=== PATIENT | female | born 1955 | race Caucasian/White ===

== ENCOUNTER 2016-11-19 05:39 | Inpatient (IN) | payer OTHER ==
[2016-10-29 09:34] VITALS: BMI 38.0
--- NOTE | 2016-10-29 10:19 | PAT Medication Instructions ---
Service Date Oct 29, 2016. Current Home Medication List Aspirin (Aspirin Ec), 2 TAB PO QAM Atorvastatin (Lipitor), 20 MG PO QPM Cholecalciferol (Vitamin D-3), 1 TAB PO QAM Esomeprazole Magnesium (Nexium), 40 MG PO QAM Hydrochlorothiazide (Hydrochlorothiazide), 12.5 MG PO QPM Lorazepam (Ativan), 0.5 MG PO DAILY PRN for Anxiety Metoprolol Tartrate (Lopressor) (Lopressor), 25 MG PO BID Nitroglycerin (Nitrostat), 0.4 MG UT PRN Quetiapine Fumarate (Seroquel), 50 MG PO QPM Tramadol (Ultram), 50 MG PO Q8H PRN for Pain Vortioxetine HBr (Brintellix), 1 TAB PO QAM Medication Instructions For Your Scheduled Surgery - Check with surgeon/trash collector for instructions: Aspirin (Aspirin Ec), 81mg 2 TAB PO QAM - Hold the following medications the morning of surgery: Cholecalciferol (Vitamin D-3), 1 TAB PO QAM - Take the following medications the morning of surgery with a sip of water: Nitroglycerin (Nitrostat), 0.4 MG UT PRN Metoprolol Tartrate (Lopressor) (Lopressor), 25 MG PO BID Lorazepam (Ativan), 0.5 MG PO DAILY PRN for Anxiety Esomeprazole Magnesium (Nexium), 40 MG PO QAM Tramadol (Ultram), 50 MG PO Q8H PRN for Pain (okay to take up to 4 hours prior to surgery if needed) Vortioxetine HBr (Brintellix), 1 TAB PO QAM - Take the following medications as scheduled the night before surgery: Quetiapine Fumarate (Seroquel), 50 MG PO QPM Nitroglycerin (Nitrostat), 0.4 MG UT PRN Metoprolol Tartrate (Lopressor) (Lopressor), 25 MG PO BID Lorazepam (Ativan), 0.5 MG PO DAILY PRN for Anxiety Hydrochlorothiazide (Hydrochlorothiazide), 12.5 MG PO QPM Atorvastatin (Lipitor), 20 MG PO QPM Tramadol (Ultram), 50 MG PO Q8H PRN for Pain If you have any questions please call us at [phone] (Chiara Alberto PA-C) or [phone] or [phone]
[2016-10-29 10:46] LABS: BASO % 0.1 %; BASO ABS # 0.01 K/uL (0-0.2); COMPLETE YES; EOS % 2.3 %; HEMATOCRIT 38.3 % (37-47); IG% 0.2 %; LYMPH % 18.3 %; LYMPH ABS # 1.53 K/uL (1.2-3.4); MEAN CELL VOLUME 89.5 fL (80-100); MEAN CORPUSCULAR HEMOGLOBIN 31.5 pg (25-34); MEAN CORPUSCULAR HGB CONC 35.2 g/dl (32-36); MEAN PLATELET VOLUME 11.3 fL (7.4-10.4); MONO % 5.9 %; NEUT % 73.2 %; PLATELET COUNT 202 K/uL (130-400); RED BLOOD COUNT 4.28 M/uL (4.2-5.4); WHITE BLOOD COUNT 8.35 K/uL (4.8-10.8)
[2016-10-29 10:48] LABS: URINE APPEARANCE CLEAR (CLEAR); URINE BILIRUBIN NEG (NEG); URINE COLOR YELLOW; URINE EPITHELIAL CELL AUTO >30 /lpf (0-5); URINE NITRITE NEG (NEG); URINE PH 5.5 (4.5-7.5); URINE SPECIFIC GRAVITY 1.014 (1.000-1.030); UROBILINOGEN NEG (NEG)
[2016-10-29 10:50] LABS: MANUAL MICROSCOPIC REQUIRED? NO; REVIEW REQ? NO
[2016-10-29 11:18] LABS: BUN/CREATININE RATIO 19.6 (10-20); CALCIUM 9.3 mg/dl (8.5-10.1); CREATININE 0.75 mg/dl (0.60-1.20); POTASSIUM 3.7 mmol/L (3.5-5.1)
--- NOTE | 2016-11-18 08:56 | HISTORY & PHYSICAL EXAMINATION ---
DATE OF ADMISSION: 11/19/2016 HISTORY OF PRESENT ILLNESS: The patient presents to our office with complaint of back pain radiating down both legs, right worse than left over the past 2-3 years. She has trialed physical therapy as well as an injection in [place] with about 5-6 weeks of relief. She has also had an injection with Dr. Florez in August 2016 with about 4-5 weeks of relief. She reports bending forward or standing reproduces her back pain and the longer she is on her feet this also intensifies her pain. She is having a difficult time working as her job requires a lot of bending and lifting. Denies christopher weakness or numbness, paresthesias in her leg. Denies bowel or bladder dysfunction. PAST MEDICAL HISTORY: Significant for angina, GERD, coronary artery disease, depression, gallbladder disease, irregular heartbeat, hiatal hernia, hypertension, high cholesterol, shortness of breath, sleep apnea, spinal stenosis, motion sickness and obesity. PAST SURGICAL HISTORY: Significant for CABG x3, cholecystectomy, tubal ligation, lump excised from her right breast cyst removed from her right finger. ALLERGIES: INCLUDE SULFA. CURRENT MEDICATIONS: Include Ativan 0.5 mg daily, metoprolol 50 mg half a tablet twice a day, tramadol 50 mg twice a day, vitamin D 2000 units daily, atorvastatin 20 mg a day, Seroquel 100 mg a day, Trintellix 20 mg a day, hydrochlorothiazide 25 mg half a tablet daily, Nexium 40 mg daily, baby aspirin 2 a day, nitroglycerin 0.4 mg p.r.n. SOCIAL HISTORY: She is . She works at [employer]. Alcohol is 2 glasses a week, tobacco is none. FAMILY HISTORY: Significant for cardiovascular disease, cancer, diabetes, hypertension, high cholesterol and thyroid disease. REVIEW OF SYSTEMS: Significant for fatigue, weakness, weight loss, blurred vision, vertigo, anxiety, depression, dizziness, coughing bruising. PHYSICAL EXAMINATION: VITAL SIGNS: 5 foot 4, 212 pounds. HEAD, EYES, EARS, NOSE, AND THROAT: Speech appropriate. CARDIOPULMONARY: No gross abnormalities. ABDOMEN: Soft, nontender. GENITOURINARY: Deferred. NEUROLOGIC: Cranial nerves II-XII grossly intact. MUSCULOSKELETAL: She moves slowly around the room. No focal atrophy of her legs. Neurovascularly intact bilateral lower extremities. Strength is intact bilateral lower extremities. ASSESSMENT: Severe spinal stenosis of the lumbar spine as well as grade 1 spondylolisthesis of L4-L5. PLAN: At this point in time, she has tried and failed conservative therapy and may consider surgical intervention. Surgery would require lumbar decompression L4-5 and L3-L4. Risks, benefits, pros, cons, and alternatives were outlined in detail. She would like to proceed with above-mentioned surgical planning in the form of fusion L3-4, L4-5.
[~2016-11-19] VITALS: Ht 162.6 cm; Wt 100.4 kg
[2016-11-19] VITALS (10 sets, daily range): BP systolic 101–149; BP diastolic 67–89; PULSE 70–102; TEMP 36.4–37; O2SAT 92–98; Ht 162.6 cm; Wt 100.4 kg
[~2016-11-19 05:39] MED LIST: ASPI81TA28 PO; ATOR-22 PO; CHOL200027 PO; HYDR25TA5 PO; LORA-741 PO; METO50TA16 PO; NTRGSL/4 UT; NXM/40 PO; QUET1TAB32 PO; TRAM-10 PO; VORT20TA PO
[2016-11-19] MEDS ORDERED: CEFAZOLIN 2000 MG/60 ML D5W IV SCH (06:00)
[2016-11-19] MEDS ORDERED: LACTATED RINGER'S 1000ML 1,000 ML IV SCH (06:00)
[2016-11-19] MEDS ORDERED: MIDAZOLAM HCL 1 MG/ML 2ML VIAL ONE (06:35)
[2016-11-19] MEDS ORDERED: FENTANYL CITRATE INJ 50 MCG/1 ML 2 ML VIAL ONE ×3 (06:35→08:22)
[2016-11-19] MEDS ORDERED: BUPIVACAINE/EPINEPHRINE 0.5% MPF 1:200,000 30 ML VIAL ONE (06:57)
[2016-11-19] MEDS ORDERED: BACITRACIN 50000 UNIT VIAL ONE (06:57)
[2016-11-19] MEDS ORDERED: SODIUM CHLORIDE 0.9% PF 50 ML VIAL ONE (06:57)
--- NOTE | 2016-11-19 07:26 | History & Physical Bridge Note ---
H&P Re-Evaluation Bridge Note: I have examined the patient, reviewed the History & Physical and in the interval since the performance of the History & Physical I have noted the following changes of clinical significance: No changes noted
[2016-11-19] MEDS ORDERED: NALOXONE HCL 0.4 MG/1 ML VIAL/CARP IV PRN ×4 (08:15→10:00)
[2016-11-19] MEDS ORDERED: HYDROmorphone INJ 1 MG/ML SYR IV PRN (08:15)
[2016-11-19] MEDS ORDERED: EpHEDrine SULFATE INJ 50 MG/ML AMP IV PRN (08:15)
[2016-11-19] MEDS ORDERED: PHENYLEPHRINE 100MCG/ML 5ML SYR IV PRN (08:15)
[2016-11-19] MEDS ORDERED: ATROPINE SULFATE 0.1 MG/ML 5ML SYR IV PRN (08:15)
[2016-11-19] MEDS ORDERED: MoRPHine SULFATE 10 MG/ML CARP/VIAL IV PRN (08:15)
[2016-11-19] MEDS ORDERED: ONDANSETRON INJ 2 MG/ML 2 ML VIAL IV PRN ×2 (08:15→10:00)
[2016-11-19] MEDS ORDERED: FLUMAZENIL 0.1 MG/1 ML 10 ML VIAL IV PRN (08:15)
[2016-11-19] MEDS ORDERED: MEPERIDINE HCL 25 MG/ML CARP IV PRN (08:15)
[2016-11-19] MEDS ORDERED: LABETALOL HCL IV 5 MG/ML 20ML IV PRN (08:15)
[2016-11-19] MEDS ORDERED: HYDROmorphone INJ 2 MG/ML SYR/VIAL ONE (08:22)
[2016-11-19] MEDS ORDERED: DEXAMETHASONE SOD INJ 4 MG/ML VIAL ONE (08:41)
[2016-11-19] MEDS ORDERED: GLYCOPYRROLATE INJ 0.2 MG/ML VIAL ONE (08:41)
[2016-11-19] MEDS ORDERED: NEOSTIGMINE METHYLSULFATE 1 MG/ML 10ML VIAL ONE (08:41)
[2016-11-19] MEDS ORDERED: EpHEDrine SULFATE 50MG/5ML SYR ONE (08:41)
[2016-11-19] MEDS ORDERED: ROCURONIUM BROMIDE 10 MG/ML 5 ML VIAL ONE (08:41)
[2016-11-19] MEDS ORDERED: PHENYLEPHRINE 100MCG/ML 5ML SYR ONE (08:41)
[2016-11-19] MEDS ORDERED: LIDOCAINE HCL 2% 2 ML VIAL (20MG/ML) ONE (08:41)
[2016-11-19] MEDS ORDERED: ONDANSETRON INJ 2 MG/ML 2 ML VIAL ONE (08:41)
[2016-11-19] MEDS ORDERED: PROPOFOL IV EMULSION 10 MG/ML 20 ML VIAL IV ONE (08:41)
[2016-11-19] MEDS ORDERED: FLOSEAL HEMOSTATIC MATRIX 10ML TOP ONE (09:40)
[2016-11-19] MEDS ORDERED: SODIUM CHLORIDE 0.9% 1000ML 1,000 ML IV SCH ×2 (09:49)
--- NOTE | 2016-11-19 09:49 | [facility] Post Operative Brief Note ---
Immediate Operative Summary Operative Date Nov 19, 2016. Pre-Operative Diagnosis Severe spinal stenosis of the lumbar spine as well as grade 1 spondylolisthesis of L4-L5. Post-Operative Diagnosis Severe spinal stenosis of the lumbar spine as well as grade 1 spondylolisthesis of L4-L5. Procedure(s) Performed L3-L4, L4-L5 Lumbar Decompression, posterolateral fusion with instrumentation, Interbody Fusion with Placement of Interbody Cage at L4-5, Bone Morphogenetic Protein Surgeon Dr. Maximiliano Altamirano Manager Information Surgeon(s) Chantal Marcano PA-C Estimated Blood Loss 650ml Findings stenosis/spondy Specimens None per surgeon
--- NOTE | 2016-11-19 09:50 | DIAGNOSTIC IMAGING REPORT ---
INTRAOPERATIVE FLUOROSCOPIC IMAGES OF THE LUMBAR SPINE CLINICAL HISTORY: L3-5 DECOMPRESSION/FUSION/INTERBODY COMPARISON STUDY: No previous studies for comparison. Fluoroscopy time: 14 seconds. FINDINGS: 2 fluoroscopic images demonstrate an L4-L5 discectomy with interbody spacer placement. There are bilateral pedicle screws at the L3, L4 and L5 levels. There is slight anterolisthesis of L4 and L5. IMPRESSION: Findings consistent with an L4-L5 discectomy and L3-L5 bilateral pedicle screw fusion. Electronically signed by: Mir Iniguez M.D. 11/19/2016 9:48 AM Dictated Date/Time: 11/19/2016 9:48 AM
[2016-11-19] MEDS ORDERED: LORAZEPAM INJ 0.5 MG in SYRINGE 0 ML IV PRN (10:00)
[2016-11-19] MEDS ORDERED: NITROGLYCERIN 0.4 MG SL PER TAB CHARGE UT PRN (10:00)
[2016-11-19] MEDS ORDERED: ACETAMINOPHEN 500 MG TAB PO PRN (10:00)
[2016-11-19] MEDS ORDERED: SOD PHOSPHATE/SOD BIPHOSPHATE ENEMA 132 ML BTL PR PRN (10:00)
[2016-11-19] MEDS ORDERED: FAMOTIDINE 20 MG TAB PO PRN (10:00)
[2016-11-19] MEDS ORDERED: MAGNESIUM HYDROXIDE SUSP 30 ML UDC PO PRN (10:00)
[2016-11-19] MEDS ORDERED: ACETAMINOPHEN IV 100 ML IV PRN (10:00)
[2016-11-19] MEDS ORDERED: METOCLOPRAMIDE HCL INJ 5 MG/ML 2 ML VIAL IV PRN (10:00)
[2016-11-19] MEDS ORDERED: DO NOT ADMINISTER FLU VACCINE PRN ×3 (10:00)
[2016-11-19] MEDS ORDERED: PROMETHAZINE HCL INJ 12.5 MG in SODIUM CHLORIDE 0.9% 50ML 50 ML IV PRN (10:00)
[2016-11-19] MEDS ORDERED: TRAMADOL HCL 50 MG TAB PO PRN (10:00)
[2016-11-19] MEDS ORDERED: DO NOT ADMINISTER PNEUMOCOCCAL VACCINE PRN ×2 (10:00)
[2016-11-19] MEDS ORDERED: BISACODYL 10 MG SUPP PR PRN (10:00)
[2016-11-19] MEDS ORDERED: ALUMINUM/MAGNESIUM SUSP 30 ML UDC PO PRN (10:00)
[2016-11-19] MEDS ORDERED: hydrOXYzine HCL 25 MG TAB PO PRN (10:00)
[2016-11-19] MEDS ORDERED: HYDROmorphone HCL 0.5MG/ML 50 ML CASSETTE IV PRN ×2 (10:00)
[2016-11-19] MEDS ORDERED: LORAZEPAM 0.5 MG TAB PO PRN (10:00)
[2016-11-19] MEDS ORDERED: HYDROmorphone HCL 0.5MG/ML 50 ML CASSETTE ONE (10:08)
[2016-11-19] MEDS ORDERED: ESMOLOL HCL 10 MG/ML 10 ML VIAL ONE (10:11)
--- NOTE | 2016-11-19 10:37 | Anesthesiology Progress Note ---
Anesthesia Post Op Note Date & Time Nov 19, 2016 at 10:37 Vital Signs Pain Intensity: 0 Vital Signs Past 12 Hours Date Time Temp Pulse Resp B/P Pulse Ox O2 Delivery O2 Flow Rate FiO2 11/19/16 10:30 97 14 136/82 97 Nasal Cannula 3 11/19/16 10:20 97 14 151/79 97 Nasal Cannula 3 11/19/16 10:10 36.6 92 14 154/84 98 Mask 10 11/19/16 06:12 37 70 20 135/84 95 Room Air Notes Mental Status: alert / awake / arousable, participated in evaluation Pt Amnestic to Procedure: Yes Nausea / Vomiting: adequately controlled Pain: adequately controlled Airway Patency, RR, SpO2: stable & adequate BP & HR: stable & adequate Hydration State: stable & adequate Anesthetic Complications: no major complications apparent The patient did well. She is awake and stable.
--- NOTE | 2016-11-19 10:48 | OPERATIVE REPORT ---
DATE OF OPERATION: 11/19/2016 PREOPERATIVE DIAGNOSES: Spinal stenosis, spondylolisthesis. POSTOPERATIVE DIAGNOSIS: Same. PROCEDURE PERFORMED: 1. Lumbar decompression and medial facetectomy and foraminotomy L2-3, L3-4, L4-5. 2. Posterior spinal fusion L3-L4, L4-L5. 3. Placement of posterior segmental instrumentation using Orthros rods and screws, L3-L4, L4-L5. 4. Interbody fusion L4-L5. 5. Placement of PEEK cage 14 x 26 mm at L4-L5. 6. Placement of locally harvested morselized autograft posterior lateral gutters. 7. Placement of Infuse collagen sponge combined with Mastergraft in posterior lateral gutters and DBM in the interbody space. SURGEON: Dr. Maximiliano Altamirano. BUSINESS REPORTING DEVELOPER: GASPER Kohler. ANESTHESIA: General. DISPOSITION: The patient awakened and taken to PACU in stable condition. HISTORY OF PATIENT'S PROBLEMS: This is a 61-year-old female that presents with above-mentioned diagnosis. After failing an extensive course of nonoperative care, elected to undergo the above-mentioned procedure. Risks, benefits, pros, cons, and alternatives were outlined in detail preoperatively. PROCEDURE: The patient was met with preoperatively, case discussed and all questions were addressed. At that point the patient was taken back to the operative suite and after undergoing successful general intubation by the Department of Anesthesia was placed in prone position on the Mason table atop Broderick frame. All bony prominences were well padded and the eyes were inspected to ensure there was no external pressure placed upon them. At this point, lumbar spine was prepped and draped in a normal sterile fashion. Sharp dissection with the assistance of Bovie cautery was performed down to and exposing the lamina and transverse processes of 3, 4 and 5 bilaterally. From a caudal to cephalad fashion, complete laminectomy of 4, 3, partial laminectomy of L2 was performed addressing severe lateral recess stenosis. After this was complete, pedicle screws then placed in 3, 4, 5 bilaterally with the assistance of fluoroscopy and appropriate size mira provisionally placed. Through a transforaminal approach on the left a complete discectomy of L4-5 was performed, endplates curetted to subcortical bleeding bone and a 14 x 26 mm PEEK cage filled with DBM tapped into position. Rods were then compressed, locked into final position bilaterally and transverse processes of 3, 4, 5 burred to subcortical bleeding bone. Infuse collagen sponge combined with Mastergraft and locally harvested morselized autograft was placed in the posterior lateral gutters. A 7 flat KALYANI drain was inserted. Incision was closed with 1-0 Vicryl in the fascia, 2-0 Vicryl subcutaneously, 4-0 Monocryl for final skin closure. Steri-Strips and sterile dressing placed. The patient was awakened and taken to PACU in stable condition. Due to the complex nature of the procedure, the entire surgery was performed with the operational assistance of GASPER Kohler. The tiler's assistant, under direct supervision, was involved in the actual performance of all aspects of the surgical procedure including hemostasis, tissue retraction and incision, instrument management, patient positioning, and wound closure. I attest to the content of the Intraoperative Record and any orders documented therein. Any exceptio ns are noted below.
[2016-11-19] MEDS: SODIUM CHLORIDE 0.9% 1000ML 1,000 ML IV SCH ×3 (12:17→23:12)
[2016-11-19] MEDS: DEXAMETHASONE INJ 6 MG in SYRINGE 0 ML IV SCH ×2 (13:58→21:23)
[2016-11-19] MEDS: CEFAZOLIN IV 2,000 MG in DEXTROSE 5% 50ML 50 ML IV SCH ×2 (15:37→23:12)
[2016-11-19] MEDS: DOCUSATE SODIUM/SENNA 50/8.6MG TAB PO SCH (21:19)
[2016-11-19] MEDS: METOPROLOL TARTRATE 25 MG TAB PO SCH (21:20)
[2016-11-19] MEDS: HYDROCHLOROTHIAZIDE 25 MG TAB PO SCH (21:20)
[2016-11-19] MEDS: ATORVASTATIN 20 MG TAB PO SCH (21:20)
[2016-11-19] MEDS: QUETIAPINE FUMARATE 25 MG TAB PO SCH (21:21)
[2016-11-20] VITALS (8 sets, daily range): BP systolic 126–166; BP diastolic 76–86; PULSE 74–99; TEMP 36.5–37.3; O2SAT 90–98
[2016-11-20] MEDS: DEXAMETHASONE INJ 6 MG in SYRINGE 0 ML IV SCH (05:58)
[2016-11-20] MEDS ORDERED: DC PCA ONE (06:00)
[2016-11-20] MEDS ORDERED: NURSING VERBAL MED ORDER ONE (06:00)
[2016-11-20] MEDS ORDERED: HYDROmorphone INJ 1 MG/ML SYR IV PRN (06:00)
[2016-11-20] MEDS ORDERED: HYDROmorphone INJ 0.5 MG/0.5 ML SYR IV PRN (06:00)
[2016-11-20 06:17] LABS: BASO % 0.1 %; BASO ABS # 0.01 K/uL (0-0.2); HEMATOCRIT 24.7 % (37-47); IG% 0.3 %; LYMPH % 6.8 %; LYMPH ABS # 0.88 K/uL (1.2-3.4); MEAN CELL VOLUME 87.9 fL (80-100); MEAN CORPUSCULAR HEMOGLOBIN 30.6 pg (25-34); MEAN CORPUSCULAR HGB CONC 34.8 g/dl (32-36); MEAN PLATELET VOLUME 10.5 fL (7.4-10.4); MONO % 4.8 %; PLATELET COUNT 178 K/uL (130-400); RED BLOOD COUNT 2.81 M/uL (4.2-5.4); WHITE BLOOD COUNT 12.89 K/uL (4.8-10.8)
[2016-11-20 06:42] LABS: COMPLETE YES; DOHLE BODIES 1+; GIANT PLATELETS 1+; HYPOCHROMIA PRESENT; TOXIC GRANULATION 1+
[2016-11-20 06:45] LABS: BUN/CREATININE RATIO 17.6 (10-20); CALCIUM 8.8 mg/dl (8.5-10.1); CREATININE 0.67 mg/dl (0.60-1.20); POTASSIUM 4.1 mmol/L (3.5-5.1)
--- NOTE | 2016-11-20 07:19 | Clinical Documentation Query ---
PATRICIO Rose : CLINICAL DOCUMENTATION QUERY Patient is a 61 year old female who on 11/19 underwent lumbar decompression and posterior spinal fusion. EBL for the procedure was 650 ml's with subsequently documented losses to date totaling an additional 175 ml's. Preoperative hemoglobin and hematocrit were 13.5 g/dl and 38.3%. POD #1, values are 8.6 g/dl and 24.7%. I/O is noted to be positive for approximately 2,500 ml's at this time. She is being monitored with serial hematology and I/O including drain outputs. Please clarify as clinically appropriate. Thank you. In your clinical opinion is this patient being managed for: ( ) Acute blood loss and hemodilutional anemia ( ) Other explanation of clinical findings (Please Explain) ( ) Unable to determine (Please Define) ( ) Need to Discuss ( ) Not Agree The medical record reflects the following clinical findings, treatment, and risk factors. Clinical Indicators:As above Treatment:is being monitored with serial hematology and I/O including drain outputs Risk Factors: Acute perioperative blood losses, IVF administration. Please clarify and document your clinical opinion in the progress notes and discharge summary. Terms such as "probable", "suspected", "likely", "questionable", "possible", or "still to be ruled out" are acceptable. IF IN AGREEMENT, YOU MUST DOCUMENT ABOVE DIAGNOSTIC STATEMENT IN DAILY PROGRESS NOTES AND DISCHARGE SUMMARY. This document is not part of the patient's record. Thank You, Arturo Saldana, RN [phone]
--- NOTE | 2016-11-20 07:46 | Anesthesiology Progress Note ---
Anesthesia Post Op Note Date & Time Nov 20, 2016 at 07:46 Vital Signs Vital Signs Past 12 Hours Date Time Temp Pulse Resp B/P Pulse Ox O2 Delivery O2 Flow Rate FiO2 11/20/16 03:12 36.9 93 16 126/76 92 Room Air 11/19/16 23:09 37.0 100 18 130/82 92 CPAP 11/19/16 21:18 96 149/89 Notes Mental Status: alert / awake / arousable, participated in evaluation Pt Amnestic to Procedure: Yes Nausea / Vomiting: adequately controlled Pain: adequately controlled Airway Patency, RR, SpO2: stable & adequate BP & HR: stable & adequate Hydration State: stable & adequate Anesthetic Complications: no major complications apparent
[2016-11-20] MEDS: METOPROLOL TARTRATE 25 MG TAB PO SCH ×2 (08:38→20:44)
[2016-11-20] MEDS: ASPIRIN 81 MG ECTAB PO SCH (08:39)
[2016-11-20] MEDS: PANTOprazole SOD 40 MG TAB PO SCH (08:39)
[2016-11-20] MEDS ORDERED: RXC5 PO (13:16)
--- NOTE | 2016-11-20 13:16 | Discharge Instructions ---
Discharge Instructions Admission Reason for Admission: Lumbar Spinal Stenosis Discharge Discharge Diagnosis / Problem: stenosis Discharge Goals Goal(s): Improve function Activity Recommendations Activity Limitations: per Instructions/Follow-up section . Instructions / Follow-Up Instructions / Follow-Up ACTIVITY RECOMMENDATIONS: SELF CARE INSTRUCTIONS AFTER THORACIC/LUMBAR FUSIONS 1. You may walk to your tolerance. It is good exercise for your legs and back. Expect some back and intermittent leg aches and pains. 2. You may perform "counter-top" level activities (make a sandwich, radha with a project, etc.). 3. No bending or lifting of more than 10 pounds or back twisting of any nature (roll like a log when turning in bed). 4. You may ride in a car for 20-30 minutes at a time. No driving until after your first visit with your doctor. 5. Frequent changes of position and restricting sitting to 30 minutes at a time will help limit the amount of back spasms and stiffness you may experience. 6. You may discontinue the use of ambulatory aids (cane, crutches, etc.) once your strength and confidence allow. 7. You may band bias machine operator the shower and let water strike your incision when you arrive home at least once daily. Do not take a tub bath, sit in a hot tub or go into a swimming pool until after your first recheck in the office. SPECIAL CARE INSTRUCTIONS: VERY IMPORTANT TO READ AND REVIEW A. Your surgical incision has been closed with a cosmetic suture under the skin that will dissolve in about 6 weeks. In 14 days, you can use a pair of clean scissors and cut the suture that is left outside of the skin at the ends of your incision. 1. The small skin tapes can be removed 7 days after surgery if they have not fallen off by that point. 2. You may keep the wound open to air as much as possible to promote healing after post-op day number 5 unless told otherwise by your doctor. 3. If you think the wound looks like it is becoming infected (redness or worsening drainage) and/or you are experiencing fever, chill or worsening back pain and muscle spasms, contact the office so that we may evaluate you as soon as possible. B. Complications are uncommon, but please contact us if you have any signs or symptoms of: 1. wound infection (fever higher than 102.5 degrees F, redness, separation of wound, drainage, or increasing pain from the incision) 2. blood clots in legs (pain, swelling, redness and warmth in legs) 3. urinary tract infection (fever higher than 102.5 degrees F, burning upon urination or increased frequency of urination) 4. nerve problems (inability to walk on your toes or heels, numbness, loss of bowel or bladder control) 5. any other symptoms that concern you C. Please call the office at if you have any concerns or questions about your operation or recovery. D. No smoking! Smoking drastically decreases the chance of a solid fusion. E. Do not take any anti-inflammatory medications (Indocin, Advil, Motrin, Aspirin, Naprosyn, etc.) as these may inhibit the chance of a solid fusion. Tylenol is okay to take for pain. MANAGING PAIN AFTER SPINAL SURGERY 1. Narcotic medication is intended for short-term use and will be provided for surgical pain. Surgical pain usually lasts for a period of 4-6 weeks. Narcotic medication includes Percocet, Vicodin, Darvocet, Tylenol #3 or Lortab. 2. Longer-term pain is more appropriately treated with non-narcotic medication such as Tylenol ES. 3. Muscle spasm is not appropriately treated with narcotics. Muscle relaxers such as Soma, Flexeril or Skelaxin can be used along with Tylenol ES. 4. Remember that we all live with some "aches and pains". This is not unusual or uncommon after an injury or as we get older. a. Back pain is expected and may include muscle spasms for 4 to 6 weeks after surgery. The pain should gradually improve. If the pain worsens for no apparent reason, please contact the office. b. Intermittent leg pain may also be experienced and should not be concerned about unless it worsens for no apparent reason. If so, please contact the office. 5. We will provide appropriate medication within the normal guidelines of their prescribed use. We will also be very cautious and aware of potential abuse and extended duration of patients' medication needs. a. Pain medications are for your comfort and to assist with sleep and rest so that the tissue can heal. They are not provided in order to return to normal activity and should not be used through the day. To do so or worsening pain at night can result from ongoing tissue damage and development of tolerance to the prescribed medicine. 6. Please allow 2-3 days to process refills. Prescriptions will not be mailed but must be picked up at the office. FOLLOW UP VISIT: Keep your scheduled follow-up appointment. Any questions, please call the office at . Current Hospital Diet Patient's current hospital diet: Regular Diet Discharge Diet Recommended Diet: Regular Diet Procedures Procedures Performed: L3-L4, L4-L5 Lumbar Decompression, posterolateral fusion with instrumentation, Interbody Fusion with Placement of Interbody Cage at L4-5, Bone Morphogenetic Protein Pending Studies Studies pending at discharge: no Medical Emergencies . Who to Call and When: Medical Emergencies: If at any time you feel your situation is an emergency, please call 911 immediately. . Non-Emergent Contact Non-Emergency issues call your: Primary Care Provider . "Provider Documentation" section prepared by Maximiliano Altamirano. VTE Core Measure Inpt VTE Proph given/why not?: Stanford Mckay, SCD's
[2016-11-20] MEDS: OXYCODONE HCL IR 5 MG TAB (IMMEDIATE RELEASE) PO PRN ×2 (14:12→22:16)
--- NOTE | 2016-11-20 15:34 | PROGRESS NOTE ---
DATE: 11/20/2016 SUBJECTIVE: Postop day 1, back pain controlled. Leg pain improved. Vital signs stable. T-max 37.0 KALYANI drained 100 mL. Hematocrit 24.7. OBJECTIVE: On exam she is ambulating in the perez, demonstrates good strength to testing. Appears very comfortable. ASSESSMENT: Status post lumbar decompression and fusion. PLAN: At this time will continue with physical therapy, advance her bowel regimen, anticipate home this weekend.
[2016-11-20] MEDS: QUETIAPINE FUMARATE 25 MG TAB PO SCH (20:44)
[2016-11-20] MEDS: ATORVASTATIN 20 MG TAB PO SCH (20:44)
[2016-11-20] MEDS: DOCUSATE SODIUM/SENNA 50/8.6MG TAB PO SCH (20:44)
[2016-11-20] MEDS: HYDROCHLOROTHIAZIDE 25 MG TAB PO SCH (20:44)
[2016-11-21] MEDS: POLYETHYLENE (MIRALAX) 17 GM PACK PO SCH ×3 (05:45→18:07)
[2016-11-21] MEDS: OXYCODONE HCL IR 5 MG TAB (IMMEDIATE RELEASE) PO PRN ×4 (05:49→23:47)
[2016-11-21 06:19] VITALS: BP 132/83; PULSE 98; TEMP 36.9; O2SAT 96
[2016-11-21] MEDS: ASPIRIN 81 MG ECTAB PO SCH (07:50)
[2016-11-21] MEDS: PANTOprazole SOD 40 MG TAB PO SCH (07:51)
[2016-11-21 07:52] VITALS: BP 124/60; PULSE 85; TEMP 36.9; O2SAT 97
[2016-11-21] MEDS: METOPROLOL TARTRATE 25 MG TAB PO SCH ×2 (07:55→20:30)
[2016-11-21 08:57] VITALS: O2SAT 97
--- NOTE | 2016-11-21 14:33 | PROGRESS NOTE ---
DATE: 11/21/2016 SUBJECTIVE: Postop day #2. Back pain controlled. ____. T-max 36.9. KALYANI drained 50 mL today. Hematocrit stable at 24.7. On exam, she is quite comfortable ambulating halls. ASSESSMENT: Status post multilevel lumbar decompression and fusion. PLAN: At this time, will anticipate maintaining the KALYANI drain another 24 hours and discharge home tomorrow with home health.
[2016-11-21 15:21] VITALS: BP 138/82; PULSE 100; TEMP 37.1; O2SAT 96
[2016-11-21] MEDS: QUETIAPINE FUMARATE 25 MG TAB PO SCH (20:30)
[2016-11-21] MEDS: ATORVASTATIN 20 MG TAB PO SCH (20:30)
[2016-11-21] MEDS: DOCUSATE SODIUM/SENNA 50/8.6MG TAB PO SCH (20:30)
[2016-11-21] MEDS: HYDROCHLOROTHIAZIDE 25 MG TAB PO SCH (20:30)
[2016-11-21 20:32] VITALS: BP 144/79; PULSE 98
[2016-11-21 23:07] VITALS: BP 139/77; PULSE 89; TEMP 37.2; O2SAT 91
[2016-11-22] MEDS ORDERED: NURSING VERBAL MED ORDER ONE
[2016-11-22 07:42] VITALS: BP 148/85; PULSE 89; TEMP 37.4; O2SAT 95
[2016-11-22] MEDS: METOPROLOL TARTRATE 25 MG TAB PO SCH (08:32)
[2016-11-22] MEDS: PANTOprazole SOD 40 MG TAB PO SCH (08:32)
[2016-11-22] MEDS: ASPIRIN 81 MG ECTAB PO SCH (08:32)
[2016-11-22] MEDS: OXYCODONE HCL IR 5 MG TAB (IMMEDIATE RELEASE) PO PRN ×2 (08:35→13:27)
--- NOTE | 2016-11-22 10:39 | DISCHARGE SUMMARY ---
DATE OF DISCHARGE: 11/22/2016. PRINCIPAL DIAGNOSIS: Spinal stenosis. HOSPITAL COURSE FOLLOWS: On 11/19/2016 patient underwent lumbar decompression and fusion, tolerated this well and taken to the orthopedic floor postoperatively. Postop day #1, she was up and ambulatory, progressed to postop day #2. KALYANI drain decreasing appropriately. Bowels were working well. Subsequently on postoperative day #3 discharged home. Discharge orders and instructions can be found on the chart for further review.
[2016-11-22 11:08] VITALS: BP 148/85; PULSE 89; TEMP 37.4; O2SAT 95
== END 2016-11-22 14:20 | disposition home health service (06) | DRG 460 ==
LOC: ENRESERVTM → ENRESERVDT → C.ACU 05:39 → C.3E 07:30
PROVIDERS: ADMIT Orthopaedic Surgery Orthopaedic Surgery of the Spine; ATTEND Orthopaedic Surgery Orthopaedic Surgery of the Spine
PROC: 0SG1071 Fusion of 2 or more Lumbar Vertebral Joints with Autologous Tissue Substitute, Posterior Approach, Posterior Column, Open Approach (ICD-10-PCS; principal; 2016-11-19 07:45)
PROC: 0SG10A1 (ICD-10-PCS; principal; 2016-11-19 07:45)
PROC: 0SG10J1 Fusion of 2 or more Lumbar Vertebral Joints with Synthetic Substitute, Posterior Approach, Posterior Column, Open Approach (ICD-10-PCS; principal; 2016-11-19 07:45)
PROC: 3E0U0GB Introduction of Recombinant Bone Morphogenetic Protein into Joints, Open Approach (ICD-10-PCS; principal; 2016-11-19 07:45)
DX: M48.06 Spinal stenosis, lumbar region (principal); K21.9 Gastro-esophageal reflux disease without esophagitis; I25.10 Atherosclerotic heart disease of native coronary artery without angina pectoris; F32.9 Major depressive disorder, single episode, unspecified; I10 Essential (primary) hypertension; G47.30 Sleep apnea, unspecified; E66.9 Obesity, unspecified; Z79.82 Long term (current) use of aspirin; Z83.3 Family history of diabetes mellitus; Z82.49 Family history of ischemic heart disease and other diseases of the circulatory system; Z95.1 Presence of aortocoronary bypass graft